=== PATIENT | female | born 1960 | race Caucasian/White ===

== ENCOUNTER 2017-03-23 10:48 | Emergency (ER) | payer BC ==
[~2017-03-23] VITALS: Ht 154.9 cm; Wt 54.5 kg
[2017-03-23] MEDS ORDERED: normal saline 1000ML IV soln IVB ONE (11:10)
[2017-03-23 11:17] LABS: BASOPHILS % (AUTO) 0.4 % (0-1); EOSINOPHILS # (AUTO) 0.3 X10'3 (0-0.9); EOSINOPHILS % (AUTO) 4.2 % (0-6); HEMATOCRIT 40.1 % (35.0-45.0); HEMOGLOBIN 14.3 g/dl (12.0-16.0); LYMPHOCYTES # (AUTO) 3.1 X10'3 (1.1-4.8); LYMPHOCYTES % (AUTO) 52.3 % (21-51); MEAN CORPUSCULAR HEMOGLOBIN 38.2 PG (27.0-31.0); MEAN CORPUSCULAR HGB CONC 35.6 % (33.0-36.5); MEAN CORPUSCULAR VOLUME 107.4 FL (78-98); MEAN PLATELET VOLUME 7.2 FL (7.4-10.4); MONOCYTES # (AUTO) 0.4 X10'3 (0-0.9); MONOCYTES % (AUTO) 5.9 % (2-12); NEUTROPHILS # (AUTO) 2.2 X10'3 (1.8-7.7); NEUTROPHILS % (AUTO) 37.2 % (42-75); PLATELET COUNT 193 X10'3 (140-440); RED BLOOD COUNT 3.74 X10'6 (4.20-5.60); RED CELL DISTRIBUTION WIDTH 13.1 % (11.5-14.5)
[2017-03-23 11:27] LABS: INR 0.9 INR; PARTIAL THROMBOPLASTIN TIME 25 SECONDS (22-32); PROTHROMBIN TIME 9.6 SECONDS (9.0-12.0)
[2017-03-23 11:34] LABS: ALANINE AMINOTRANSFERASE 54 U/L (12-78); ALBUMIN 3.7 G/DL (3.4-5.0); ALBUMIN/GLOBULIN RATIO 1.1 (1.1-1.5); ALKALINE PHOSPHATASE 54 IU/L (46-116); ANION GAP 12 (8-16); ASPARTATE AMINO TRANSFERASE 81 U/L (10-37); BILIRUBIN,TOTAL 0.2 MG/DL (0.1-1.0); BLOOD UREA NITROGEN 20 MG/DL (7-18); BUN/CREATININE RATIO 23.3 (6.6-38.0); CALCIUM 8.5 MG/DL (8.5-10.1); CHLORIDE 108 MMOL/L (99-107); CREATININE 0.86 MG/DL (0.40-0.90); GLUCOSE 94 MG/DL (70-104); POTASSIUM 4.2 MMOL/L (3.5-5.1); SODIUM 144 MMOL/L (135-145); TOTAL CARBON DIOXIDE 23.7 MMOL/L (24-32); TOTAL PROTEIN 7.1 G/DL (6.4-8.2); eGFR 68 ML/MIN
[2017-03-23 11:43] LABS: ETHANOL 0.332 GM/DL (0.0-0.010)
[2017-03-23] MEDS ORDERED: famotidine/PF 10 mg/ml inj IV ONE (11:55)
[2017-03-23] MEDS ORDERED: ondansetron/PF 4mg/2ml inj IV ONE (11:55)
[2017-03-23] MEDS ORDERED: mag hydrox/Alum hydrox/simeth 30ml oral suspension PO ONE (11:55)
[2017-03-23] MEDS ORDERED: LIDOcaine Viscous 15ml cup PO ONE (11:55)
[2017-03-23] MEDS ORDERED: sucralfate 1 gm tablet PO ONE (11:55)
[2017-03-23] MEDS ORDERED: FAMO-128 PO (11:58)
[2017-03-23] MEDS ORDERED: ONDA4TAB9 PO (11:58)
[2017-03-23 12:09] LABS: LIPASE 248 U/L (73-393)
[2017-03-23 12:44] VITALS: BP 125/73
[2017-03-23 15:33] LABS: TOTAL CELLS COUNTED 100
[2017-03-23 15:34] LABS: PLATELET ESTIMATE NORMAL
[2017-03-23 15:35] LABS: SMUDGE CELLS FEW
== END 2017-03-23 12:51 | disposition home or self-care (01) ==
LOC: ER 10:48
DX: K29.20 Alcoholic gastritis without bleeding (principal); F10.129 Alcohol abuse with intoxication, unspecified; E78.00 Pure hypercholesterolemia, unspecified; I25.10 Atherosclerotic heart disease of native coronary artery without angina pectoris; I10 Essential (primary) hypertension; I25.2 Old myocardial infarction; F17.210 Nicotine dependence, cigarettes, uncomplicated
CPT/HCPCS: 36415; 71045; 80053; 80320; 82948; 83690; 84484; 85025; 85610; 85730; 93005; 96361; 96374; 96375; 99285; J2405; J3490; J7030

== ENCOUNTER 2022-11-28 19:24 | Inpatient (IN) | payer BC, MEDICAID ==
[~2022-11-28] VITALS: Ht 154.9 cm; Wt 59.1 kg
[~2022-11-28 19:24] MED LIST: FAMO-128 PO
--- NOTE | 2022-11-28 19:58 | NUR ---
pt was BIBA [facility] for mechanical ground level fall, VSS, pt is a&o x4, +ETOH (3 vodka martinis). Pt was lying on the couch sleeping when she turned over and fell onto her L hip. Pt L leg is shorter than the righ, painful c extension, +CSM. no skin issues. pt connected to tele monitor. will continue to monitor.
[2022-11-28] MEDS ORDERED: ondansetron/PF 4mg/2ml inj IV ONE (20:25)
[2022-11-28] MEDS ORDERED: morphine 4 MG/ML inj SYRINge IV ONE (20:25)
--- NOTE | 2022-11-28 20:42 | NUR ---
I have reviewed and agree with all interventions, assessments performed and documented by dawna ross
[2022-11-28] MEDS ORDERED: temazepam 15mg capsule PO PRN (21:00)
[2022-11-28 21:17] LABS: BASOPHILS % (AUTO) 0.3 % (0-1); EOSINOPHILS # (AUTO) 0.2 X10'3 (0-0.9); EOSINOPHILS % (AUTO) 4.1 % (0-6); HEMATOCRIT 37.4 % (35.0-45.0); HEMOGLOBIN 12.4 g/dl (12.0-16.0); LYMPHOCYTES # (AUTO) 2.2 X10'3 (1.1-4.8); LYMPHOCYTES % (AUTO) 36.8 % (21-51); MEAN CORPUSCULAR HEMOGLOBIN 33.6 PG (27.0-31.0); MEAN CORPUSCULAR HGB CONC 33.2 g/dL (33.0-36.5); MEAN CORPUSCULAR VOLUME 101.1 FL (78-98); MEAN PLATELET VOLUME 7.5 FL (7.4-10.4); MONOCYTES # (AUTO) 0.4 X10'3 (0-0.9); MONOCYTES % (AUTO) 7.4 % (2-12); NEUTROPHILS # (AUTO) 3.1 X10'3 (1.8-7.7); NEUTROPHILS % (AUTO) 51.4 % (42-75); PLATELET COUNT 234 X10'3 (140-440); RED CELL DISTRIBUTION WIDTH 17.2 % (11.5-14.5); WHITE BLOOD COUNT 5.9 X10'3 (4.5-11.0)
[2022-11-28 21:22] LABS: APTT 23 SECONDS (22-32); PROTHROMBIN TIME 9.8 SECONDS (9.0-12.0)
[2022-11-28 21:25] LABS: ALANINE AMINOTRANSFERASE 18 U/L (12-78); ALBUMIN 3.1 G/DL (3.4-5.0); ALBUMIN/GLOBULIN RATIO 0.9 (1.1-1.5); ALKALINE PHOSPHATASE 46 IU/L (46-116); ANION GAP 14 (8-16); ASPARTATE AMINO TRANSFERASE 15 U/L (10-37); BLOOD UREA NITROGEN 27 MG/DL (7-18); BUN/CREATININE RATIO 28.4 (10.0-20.0); CALCIUM 8.9 MG/DL (8.5-10.1); CHLORIDE 111 MMOL/L (99-107); CREATININE 0.95 MG/DL (0.40-0.90); GLUCOSE 96 MG/DL (70-104); POTASSIUM 4.1 MMOL/L (3.5-5.1); SODIUM 145 MMOL/L (135-145); TOTAL CARBON DIOXIDE 19.9 MMOL/L (24-32); TOTAL PROTEIN 6.7 G/DL (6.4-8.2); eCRCL 45 ML/MIN; eGFR 59 ML/MIN
[2022-11-28 21:32] LABS: INR 0.9 INR
[2022-11-28 21:45] LABS: BILIRUBIN,TOTAL 0.1 MG/DL (0.1-1.0)
[2022-11-28 22:00] LABS: BILIRUBIN,URINE NEGATIVE (Neg); CLARITY,URINE SLIGHTLY CLOUDY (Clear); COLOR,URINE STRAW (Yellow); GLUCOSE, URINE NEGATIVE (Neg); KETONES,URINE NEGATIVE (Neg); LEUKOCYTE ESTERASE ,URINE NEGATIVE (Neg); NITRITES, URINE NEGATIVE (Neg); OCCULT BLOOD,URINE NEGATIVE (Neg); PH,URINE 5.5 (4.8-8.0); PROTEIN,URINE NEGATIVE (Neg); UROBILINOGEN,URINE 0.2 E.U/dL (0.2-1.0)
[2022-11-28 22:05] LABS: UA COLLECTION TYPE FOLEY CATH
[2022-11-28 22:07] LABS: HYALINE CASTS 0-3 /LPF (NEGATIVE); SQUAMOUS EPITHELIAL CELL,UR MODERATE /LPF (FEW)
[2022-11-28 22:08] LABS: BACTERIA,URINE FEW /HPF (Neg); MUCUS STRANDS FEW /LPF (Neg); RBC,URINE NONE SEEN /HPF (0-2); WBC,URINE NONE SEEN /HPF (0-4)
[2022-11-28] MEDS ORDERED: acetaminophen 650mg rectal suppository RC PRN (23:05)
[2022-11-28] MEDS ORDERED: bisacodyl 10mg suppository rectal RC PRN (23:05)
[2022-11-28] MEDS ORDERED: acetaminophen 325mg tablet PO PRN ×2 (23:05)
[2022-11-28] MEDS ORDERED: diphenhydrAMINE 25mg capsule PO PRN (23:05)
[2022-11-28] MEDS ORDERED: HYDROcodone/acetaminophen 5mg/325mg tablet PO PRN (23:05)
[2022-11-28] MEDS ORDERED: mag hydrox/Alum hydrox/simeth 30ml oral suspension PO PRN (23:05)
[2022-11-28] MEDS ORDERED: morphine 2 MG/ML inj. syringe IV PRN (23:05)
[2022-11-28] MEDS ORDERED: ondansetron 4mg rapidly disintigrating tab PO PRN (23:05)
[2022-11-28] MEDS ORDERED: ondansetron/PF 4mg/2ml inj IV PRN (23:05)
[2022-11-28] MEDS ORDERED: magnesium hydroxide 30ml (MOM) UD suspension PO PRN (23:05)
[2022-11-28] MEDS ORDERED: diphenhydrAMINE 50 mg/ml inj IV PRN (23:05)
[2022-11-28 23:39] LABS: HEMOGLOBIN A1C 5.5 % (4.5-6.2)
[2022-11-28 23:47] LABS: CREATINE KINASE 34 U/L (26-192); MAGNESIUM 1.8 MG/DL (1.5-2.4); PHOSPHORUS 4.1 MG/DL (2.3-4.5); PRO BRAIN NATRIURETIC PEPTIDE 67 PG/ML (0-125); THYROID STIMULATING HORMONE 0.87 ulU/ml (0.34-4.50)
[2022-11-28 23:48] LABS: LIPASE 77 U/L (16-77)
[2022-11-28] MEDS: normal saline 1000ml 1,000 ML IV SCH (23:55)
--- NOTE | 2022-11-28 23:56 | NUR ---
husbands cell phone [phone]
[2022-11-29] VITALS (7 sets, daily range): BP systolic 147–165; BP diastolic 67–95; PULSE 87–95; RESP 16–18; TEMP 96.5–98.1; O2SAT 94–98
[2022-11-29] MEDS: HYDROmorphone inj. 0.5 MG/0.5 ML DISP.SYRIN IV PRN (02:18)
[2022-11-29 03:21] LABS: BASOPHILS % (AUTO) 0.3 % (0-1); EOSINOPHILS # (AUTO) 0.2 X10'3 (0-0.9); EOSINOPHILS % (AUTO) 2.8 % (0-6); HEMATOCRIT 34.8 % (35.0-45.0); HEMOGLOBIN 11.5 g/dl (12.0-16.0); LYMPHOCYTES # (AUTO) 2.1 X10'3 (1.1-4.8); MEAN CORPUSCULAR HEMOGLOBIN 33.9 PG (27.0-31.0); MEAN CORPUSCULAR HGB CONC 33.1 g/dL (33.0-36.5); MEAN CORPUSCULAR VOLUME 102.2 FL (78-98); MEAN PLATELET VOLUME 7.7 FL (7.4-10.4); MONOCYTES # (AUTO) 0.7 X10'3 (0-0.9); MONOCYTES % (AUTO) 8.6 % (2-12); NEUTROPHILS # (AUTO) 5.1 X10'3 (1.8-7.7); NEUTROPHILS % (AUTO) 62.3 % (42-75); PLATELET COUNT 206 X10'3 (140-440); RED CELL DISTRIBUTION WIDTH 17.2 % (11.5-14.5); WHITE BLOOD COUNT 8.2 X10'3 (4.5-11.0)
[2022-11-29 03:32] LABS: ALANINE AMINOTRANSFERASE 17 U/L (12-78); ALBUMIN 2.9 G/DL (3.4-5.0); ALBUMIN/GLOBULIN RATIO 0.9 (1.1-1.5); ALKALINE PHOSPHATASE 44 IU/L (46-116); ANION GAP 12 (8-16); ASPARTATE AMINO TRANSFERASE 18 U/L (10-37); BLOOD UREA NITROGEN 26 MG/DL (7-18); BUN/CREATININE RATIO 31.3 (10.0-20.0); CALCIUM 8.6 MG/DL (8.5-10.1); CHLORIDE 113 MMOL/L (99-107); CHOL/HDL RATIO 3.1 (0.00-4.99); CHOLESTEROL 225 MG/DL (0-200); CREATININE 0.83 MG/DL (0.40-0.90); GLUCOSE 92 MG/DL (70-104); HDL CHOLESTEROL 73 MG/DL (35-60); LDL CHOLESTEROL 112 MG/DL (50-100); POTASSIUM 4.1 MMOL/L (3.5-5.1); SODIUM 144 MMOL/L (135-145); TOTAL CARBON DIOXIDE 18.6 MMOL/L (24-32); TOTAL PROTEIN 6.3 G/DL (6.4-8.2); TRIGLYCERIDES 127 MG/DL (20-135); eCRCL 52 ML/MIN; eGFR 69 ML/MIN
[2022-11-29 03:36] LABS: BILIRUBIN,TOTAL 0.1 MG/DL (0.1-1.0)
[2022-11-29] MEDS: HYDROcodone/acetaminophen 10/325mg tab PO PRN ×4 (07:10→19:57)
[2022-11-29] MEDS: normal saline 1000ml 1,000 ML IV SCH ×2 (09:05→20:22)
[2022-11-29] MEDS: docusate sod 100mg capsule PO SCH ×2 (09:54→20:27)
[2022-11-29] MEDS ORDERED: LISI40TA13 PO (10:54)
[2022-11-29] MEDS ORDERED: METO100T14 PO (10:54)
--- NOTE | 2022-11-29 11:00 | NUR ---
PAGER ID: [phone] MESSAGE: Yemi Yusuf Re: [id number] Pt home med rec complete. Patient c/o left calf pain, calf feels warm. [id number]
--- NOTE | 2022-11-29 15:51 | NUR ---
PAGER ID: [phone] MESSAGE: Yemi Yusuf Re [id number] We talked about venous ultrasound, left calf and starting BP meds from patient home med list? Can we renew francis B order set, expiring this evening? Thanks [phone]
[2022-11-29] MEDS: morphine 2 MG/ML inj. syringe IV PRN ×2 (17:08→22:38)
--- NOTE | 2022-11-29 17:42 | NUR ---
Student documentation: I have reviewed all interventions, assessments performed and documented by Clemente NGUYEN. Student Medication Administration: For this medication-pass time frame, all medication were reviewed, dispensed, administered and documented per hospital policy by Clemente NGUYEN.
--- NOTE | 2022-11-29 18:34 | NUR ---
Problems reprioritized. Patient report given, questions answered & plan of care reviewed with Zulema MICHEL.
[2022-11-30] MEDS: HYDROcodone/acetaminophen 10/325mg tab PO PRN ×6 (01:13→23:59)
[2022-11-30] MEDS: normal saline 1000ml 1,000 ML IV SCH ×2 (05:49→15:35)
[2022-11-30 05:56] LABS: BASOPHILS % (AUTO) 0.4 % (0-1); EOSINOPHILS # (AUTO) 0.1 X10'3 (0-0.9); EOSINOPHILS % (AUTO) 2.6 % (0-6); HEMATOCRIT 32.1 % (35.0-45.0); HEMOGLOBIN 10.7 g/dl (12.0-16.0); LYMPHOCYTES # (AUTO) 1.6 X10'3 (1.1-4.8); LYMPHOCYTES % (AUTO) 30.9 % (21-51); MEAN CORPUSCULAR HEMOGLOBIN 34.2 PG (27.0-31.0); MEAN CORPUSCULAR HGB CONC 33.3 g/dL (33.0-36.5); MEAN CORPUSCULAR VOLUME 102.9 FL (78-98); MEAN PLATELET VOLUME 7.6 FL (7.4-10.4); MONOCYTES # (AUTO) 0.6 X10'3 (0-0.9); NEUTROPHILS # (AUTO) 2.9 X10'3 (1.8-7.7); NEUTROPHILS % (AUTO) 55.1 % (42-75); PLATELET COUNT 159 X10'3 (140-440); RED BLOOD COUNT 3.12 X10'6 (4.20-5.60); RED CELL DISTRIBUTION WIDTH 16.7 % (11.5-14.5); WHITE BLOOD COUNT 5.3 X10'3 (4.5-11.0)
[2022-11-30 06:15] LABS: ALANINE AMINOTRANSFERASE 14 U/L (12-78); ALBUMIN 2.6 G/DL (3.4-5.0); ALBUMIN/GLOBULIN RATIO 0.8 (1.1-1.5); ALKALINE PHOSPHATASE 43 IU/L (46-116); ANION GAP 11 (8-16); ASPARTATE AMINO TRANSFERASE 16 U/L (10-37); BILIRUBIN,TOTAL 0.3 MG/DL (0.1-1.0); BLOOD UREA NITROGEN 16 MG/DL (7-18); BUN/CREATININE RATIO 21.9 (10.0-20.0); CALCIUM 8.2 MG/DL (8.5-10.1); CHLORIDE 106 MMOL/L (99-107); CREATININE 0.73 MG/DL (0.40-0.90); GLUCOSE 90 MG/DL (70-104); POTASSIUM 3.6 MMOL/L (3.5-5.1); SODIUM 137 MMOL/L (135-145); TOTAL CARBON DIOXIDE 19.8 MMOL/L (24-32); TOTAL PROTEIN 5.8 G/DL (6.4-8.2); eCRCL 59 ML/MIN; eGFR 80 ML/MIN
--- NOTE | 2022-11-30 07:00 | NUR ---
Patient in room ORTHO 4024. I have received report from Zulema MICHEL and had the opportunity to ask questions and assume patient care.
[2022-11-30 07:14] VITALS: BP 174/80; PULSE 86; RESP 16; TEMP 96.7; O2SAT 98
--- NOTE | 2022-11-30 07:18 | NUR ---
Patient in room ORTHO 4024. I have received report from Zulema MICHEL and had the opportunity to ask questions and assume patient care.
[2022-11-30 08:00] VITALS: RESP 18
[2022-11-30] MEDS: metoprolol tartrate 50mg tablet PO SCH (08:50)
[2022-11-30] MEDS: docusate sod 100mg capsule PO SCH ×2 (08:50→19:55)
[2022-11-30] MEDS: atorvastatin 10mg tablet PO SCH (08:51)
[2022-11-30] MEDS: lisinopril 20mg tablet PO SCH (08:51)
[2022-11-30] MEDS: morphine 2 MG/ML inj. syringe IV PRN (08:52)
[2022-11-30 10:00] VITALS: BP 139/73; PULSE 69; RESP 16; TEMP 98; O2SAT 98
[2022-11-30 16:40] VITALS: RESP 15; O2SAT 96
[2022-11-30 18:00] VITALS: BP 121/67; PULSE 75; RESP 16; TEMP 98.8; O2SAT 99
--- NOTE | 2022-11-30 18:40 | NUR ---
Problems reprioritized. Patient report given, questions answered & plan of care reviewed with Celestina MICHEL.
[2022-12-01] MEDS: normal saline 1000ml 1,000 ML IV SCH ×3 (01:33→21:05)
[2022-12-01] MEDS: HYDROcodone/acetaminophen 10/325mg tab PO PRN ×4 (05:21→20:46)
[2022-12-01 06:00] VITALS: BP 143/81; PULSE 74; RESP 16; TEMP 98.3; O2SAT 97
[2022-12-01 06:40] LABS: BASOPHILS % (AUTO) 0.6 % (0-1); EOSINOPHILS # (AUTO) 0.4 X10'3 (0-0.9); EOSINOPHILS % (AUTO) 7.3 % (0-6); HEMATOCRIT 33.4 % (35.0-45.0); HEMOGLOBIN 11.1 g/dl (12.0-16.0); LYMPHOCYTES # (AUTO) 2.3 X10'3 (1.1-4.8); LYMPHOCYTES % (AUTO) 45.4 % (21-51); MEAN CORPUSCULAR HGB CONC 33.3 g/dL (33.0-36.5); MEAN CORPUSCULAR VOLUME 102.2 FL (78-98); MEAN PLATELET VOLUME 8.5 FL (7.4-10.4); MONOCYTES # (AUTO) 0.6 X10'3 (0-0.9); MONOCYTES % (AUTO) 11.2 % (2-12); NEUTROPHILS # (AUTO) 1.8 X10'3 (1.8-7.7); NEUTROPHILS % (AUTO) 35.5 % (42-75); PLATELET COUNT 164 X10'3 (140-440); RED BLOOD COUNT 3.27 X10'6 (4.20-5.60); RED CELL DISTRIBUTION WIDTH 16.5 % (11.5-14.5)
[2022-12-01 06:53] LABS: ALANINE AMINOTRANSFERASE 16 U/L (12-78); ALBUMIN 2.7 G/DL (3.4-5.0); ALBUMIN/GLOBULIN RATIO 0.9 (1.1-1.5); ALKALINE PHOSPHATASE 44 IU/L (46-116); ANION GAP 9 (8-16); ASPARTATE AMINO TRANSFERASE 24 U/L (10-37); BILIRUBIN,TOTAL 0.4 MG/DL (0.1-1.0); BLOOD UREA NITROGEN 8 MG/DL (7-18); BUN/CREATININE RATIO 12.1 (10.0-20.0); CALCIUM 8.7 MG/DL (8.5-10.1); CHLORIDE 109 MMOL/L (99-107); CREATININE 0.66 MG/DL (0.40-0.90); GLUCOSE 84 MG/DL (70-104); POTASSIUM 3.6 MMOL/L (3.5-5.1); SODIUM 139 MMOL/L (135-145); TOTAL CARBON DIOXIDE 21.5 MMOL/L (24-32); TOTAL PROTEIN 5.7 G/DL (6.4-8.2); eCRCL 65 ML/MIN; eGFR 90 ML/MIN
--- NOTE | 2022-12-01 06:59 | NUR ---
Patient in room ORTHO 4024. I have received report from Celestina MICHEL and had the opportunity to ask questions and assume patient care.
--- NOTE | 2022-12-01 07:07 | NUR ---
Patient medicated q4hrly with [place], for left hip pain. Good results. Resting most of shift. Report given to Yemi MICHEL
--- NOTE | 2022-12-01 07:16 | NUR ---
Patient in room ORTHO 4024. I have received report from Celestina MICHEL and had the opportunity to ask questions and assume patient care.
[2022-12-01 08:00] VITALS: RESP 16; O2SAT 97
[2022-12-01] MEDS: lisinopril 20mg tablet PO SCH ×2 (08:32→08:56)
[2022-12-01] MEDS: atorvastatin 10mg tablet PO SCH ×2 (08:37→08:55)
[2022-12-01] MEDS: docusate sod 100mg capsule PO SCH ×2 (08:47→20:48)
[2022-12-01 08:50] VITALS: PULSE 76; TEMP 98.8
[2022-12-01] MEDS: metoprolol tartrate 50mg tablet PO SCH (08:55)
[2022-12-01] MEDS: HYDROmorphone inj. 0.5 MG/0.5 ML DISP.SYRIN IV PRN ×2 (09:01→13:16)
[2022-12-01 10:00] VITALS: BP 140/80; PULSE 60; RESP 16; TEMP 97.8; O2SAT 97
[2022-12-01 18:00] VITALS: BP 146/69; PULSE 69; RESP 16; TEMP 98.5; O2SAT 97
--- NOTE | 2022-12-01 18:31 | NUR ---
Problems reprioritized. Patient report given, questions answered & plan of care reviewed with Ar STEVENS.
[2022-12-01 22:00] VITALS: BP 149/104; PULSE 70; RESP 14; TEMP 98; O2SAT 97
[2022-12-02] MEDS: HYDROcodone/acetaminophen 10/325mg tab PO PRN ×4 (01:40→15:54)
[2022-12-02 06:00] VITALS: BP 147/81; PULSE 73; RESP 12; TEMP 97.9; O2SAT 98
--- NOTE | 2022-12-02 06:15 | NUR ---
Patient in room ORTHO 4024. I have received report from Ar STEVENS and had the opportunity to ask questions and assume patient care.
--- NOTE | 2022-12-02 06:21 | NUR ---
Report to Mary Jane STEVENS
[2022-12-02 06:50] LABS: BASOPHILS % (AUTO) 0.5 % (0-1); EOSINOPHILS # (AUTO) 0.4 X10'3 (0-0.9); EOSINOPHILS % (AUTO) 9.1 % (0-6); HEMATOCRIT 31.2 % (35.0-45.0); HEMOGLOBIN 10.7 g/dl (12.0-16.0); LYMPHOCYTES # (AUTO) 1.7 X10'3 (1.1-4.8); LYMPHOCYTES % (AUTO) 33.8 % (21-51); MEAN CORPUSCULAR HEMOGLOBIN 34.9 PG (27.0-31.0); MEAN CORPUSCULAR HGB CONC 34.4 g/dL (33.0-36.5); MEAN CORPUSCULAR VOLUME 101.5 FL (78-98); MEAN PLATELET VOLUME 8.4 FL (7.4-10.4); MONOCYTES # (AUTO) 0.6 X10'3 (0-0.9); MONOCYTES % (AUTO) 11.8 % (2-12); NEUTROPHILS # (AUTO) 2.2 X10'3 (1.8-7.7); NEUTROPHILS % (AUTO) 44.8 % (42-75); PLATELET COUNT 158 X10'3 (140-440); RED BLOOD COUNT 3.07 X10'6 (4.20-5.60); RED CELL DISTRIBUTION WIDTH 16.5 % (11.5-14.5); WHITE BLOOD COUNT 4.9 X10'3 (4.5-11.0)
[2022-12-02 07:17] LABS: ALANINE AMINOTRANSFERASE 17 U/L (12-78); ALBUMIN 2.6 G/DL (3.4-5.0); ALBUMIN/GLOBULIN RATIO 0.8 (1.1-1.5); ALKALINE PHOSPHATASE 43 IU/L (46-116); ANION GAP 10 (8-16); ASPARTATE AMINO TRANSFERASE 18 U/L (10-37); BILIRUBIN,TOTAL 0.3 MG/DL (0.1-1.0); BLOOD UREA NITROGEN 9 MG/DL (7-18); BUN/CREATININE RATIO 12.3 (10.0-20.0); CALCIUM 8.9 MG/DL (8.5-10.1); CHLORIDE 108 MMOL/L (99-107); CREATININE 0.73 MG/DL (0.40-0.90); GLUCOSE 86 MG/DL (70-104); POTASSIUM 3.3 MMOL/L (3.5-5.1); SODIUM 139 MMOL/L (135-145); TOTAL CARBON DIOXIDE 20.6 MMOL/L (24-32); TOTAL PROTEIN 5.7 G/DL (6.4-8.2); eCRCL 59 ML/MIN; eGFR 80 ML/MIN
[2022-12-02] MEDS ORDERED: lisinopril 20mg tablet PO ONE (07:45)
[2022-12-02] MEDS: docusate sod 100mg capsule PO SCH (07:47)
[2022-12-02] MEDS: metoprolol tartrate 50mg tablet PO SCH (07:48)
[2022-12-02] MEDS ORDERED: atorvastatin 10mg tablet PO ONE (07:50)
[2022-12-02 08:00] VITALS: RESP 16; O2SAT 99
[2022-12-02 10:00] VITALS: BP 129/69; PULSE 67; RESP 16; TEMP 97.8; O2SAT 98
[2022-12-02] MEDS ORDERED: potassium chloride 10mEq ER tablet PO ONE (10:20)
[2022-12-02] MEDS ORDERED: potassium Cl 20 mEq SR tablet PO ONE (10:35)
[2022-12-02] MEDS ORDERED: ATOR10TA70 PO (11:41)
[2022-12-02] MEDS ORDERED: LISI40TA13 PO (11:41)
[2022-12-02] MEDS ORDERED: HYDR-3972 PO (11:41)
[2022-12-02] MEDS ORDERED: METO50TA16 PO (11:41)
--- NOTE | 2022-12-02 14:25 | NUR ---
Spoke with case management [place] several times today regarding patient WC delivery. Case management advised me to call the supervisor loading [employer]. I spoke with supervisor loading Cammy and she advised me that the WC has an unknown ETA. I asked what company will be delivering it. She stated [employer]. I called [facility] and spoke with Meek. I asked him if there was a ETA on the delivery. Meek asked if patient is being discharged and I advised him that patient was discharged at noon. Meek apologized and stated that it will be here at 3:00. I advised patient and she is calling her ride.
--- NOTE | 2022-12-02 15:30 | NUR ---
I have reviewed and agree with interventions, assessments, and documentation by Mary Jane Stringer LVN.
--- NOTE | 2022-12-02 15:49 | NUR ---
verbally spoke with and asked if patient is discharging with francis. Per Dr. Jara no patient is not discharging with it. pls remove.
[2022-12-02 15:54] VITALS: RESP 14
--- NOTE | 2022-12-02 16:30 | NUR ---
Patient discharged home today with . All discharge instructions were explained and all questions were answered. IV and francis removed. Patient states that she did have a BM and was able to void. Patient A&O for discharge. Patient was wheeled downstairs and helped into private vehicle.
--- NOTE | 2022-12-02 17:27 | NUR ---
prior to pt being dc w/ consent from primary nurse, I removed pt Narvaez catheter w/ clinical instructor. no complaints from pt after Narvaez removal
== END 2022-12-02 16:25 | disposition home or self-care (01) | DRG 340 ==
LOC: ER 19:25 → ED HOLD 23:06 → EDBEDREQ 11-29 07:12 → ORTHO 4S 11-29 08:00
PROVIDERS: ADMIT Family Medicine; ATTEND Family Medicine
DX: S72.092A Other fracture of head and neck of left femur, initial encounter for closed fracture (principal); N17.9 Acute kidney failure, unspecified; E87.20 Acidosis, unspecified; E78.00 Pure hypercholesterolemia, unspecified; E86.1 Hypovolemia; I12.9 Hypertensive chronic kidney disease with stage 1 through stage 4 chronic kidney disease, or unspecified chronic kidney disease; I25.10 Atherosclerotic heart disease of native coronary artery without angina pectoris; J44.9 Chronic obstructive pulmonary disease, unspecified; K21.9 Gastro-esophageal reflux disease without esophagitis; K29.70 Gastritis, unspecified, without bleeding; M87.9 Osteonecrosis, unspecified; N18.9 Chronic kidney disease, unspecified; W06.XXXA Fall from bed, initial encounter; D64.9 Anemia, unspecified; Y93.89 Activity, other specified; Y92.89 Other specified places as the place of occurrence of the external cause; Y99.8 Other external cause status; I25.2 Old myocardial infarction
CPT/HCPCS: 36415; 71045; 72192; 73502; 80053; 80061; 81001; 82550; 83036; 83690; 83735; 83880; 84100; 84443; 85025; 85610; 85730; 86885; 86900; 86901; 87081; 93971; 97161; 97530; 97542; 99285; A4314; A4333; A6209; G0378; J1170; J2270; J2405; J7030

== ENCOUNTER 2023-10-02 01:22 | Emergency (ER) | payer MEDICARE, MEDICAID ==
[~2023-10-02] VITALS: Ht 162.6 cm; Wt 55.0 kg
[~2023-10-02 01:22] MED LIST changes: +ATOR10TA70 PO; +HYDR-3972 PO; +METO50TA16 PO
[2023-10-02] MEDS ORDERED: methylPREDNISolone sod succ/PF 40mg inj. IV ONE (01:35)
[2023-10-02 01:46] LABS: EOSINOPHILS # (AUTO) 0.3 X10'3 (0-0.9); HEMOGLOBIN 13.5 g/dl (12.0-16.0); MONOCYTES # (AUTO) 0.9 X10'3 (0-0.9); NEUTROPHILS # (AUTO) 2.4 X10'3 (1.8-7.7); RED BLOOD COUNT 3.94 X10'6 (4.20-5.60)
[2023-10-02 01:48] LABS: BASOPHILS % (AUTO) 0.2 % (0-1); EOSINOPHILS % (AUTO) 3.5 % (0-6); HEMATOCRIT 40.2 % (35.0-45.0); LYMPHOCYTES # (AUTO) 4.6 X10'3 (1.1-4.8); LYMPHOCYTES % (AUTO) 55.8 % (21-51); MEAN CORPUSCULAR HEMOGLOBIN 34.2 PG (27.0-31.0); MEAN CORPUSCULAR HGB CONC 33.5 g/dL (33.0-36.5); MEAN CORPUSCULAR VOLUME 102.1 FL (78-98); MEAN PLATELET VOLUME 7.5 FL (7.4-10.4); MONOCYTES % (AUTO) 10.7 % (2-12); NEUTROPHILS % (AUTO) 29.8 % (42-75); PLATELET COUNT 206 X10'3 (140-440); RED CELL DISTRIBUTION WIDTH 14.6 % (11.5-14.5); WHITE BLOOD COUNT 8.2 X10'3 (4.5-11.0)
[2023-10-02] MEDS: albuterol 2.5 MG/3 ML nebule CONTNEB ONE (01:58)
[2023-10-02] MEDS: ipratropium 0.5 MG/2.5ML nebule IH ONE (01:58)
[2023-10-02] MEDS: magnesium sulf-water 2g/50mL 50 ML IV ONE ×2 (02:00→03:19)
[2023-10-02 02:02] VITALS: PULSE 126; RESP 24; O2SAT 99
[2023-10-02 02:02] LABS: ALANINE AMINOTRANSFERASE 17 U/L (12-78); ALBUMIN 3.5 G/DL (3.4-5.0); ALBUMIN/GLOBULIN RATIO 0.9 (1.1-1.5); ALKALINE PHOSPHATASE 80 IU/L (46-116); ANION GAP 18 (8-16); ASPARTATE AMINO TRANSFERASE 16 U/L (10-37); BILIRUBIN,TOTAL 0.1 MG/DL (0.1-1.0); BLOOD UREA NITROGEN 15 MG/DL (7-18); BUN/CREATININE RATIO 18.3 (10.0-20.0); CHLORIDE 104 MMOL/L (99-107); CREATININE 0.82 MG/DL (0.40-0.90); GLUCOSE 114 MG/DL (70-104); PRO BRAIN NATRIURETIC PEPTIDE 298 PG/ML (0-125); SODIUM 140 MMOL/L (135-145); TOTAL PROTEIN 7.6 G/DL (6.4-8.2); eCRCL 59 ML/MIN; eGFR 70 ML/MIN
[2023-10-02] MEDS ORDERED: iohexol 350MG/ML 100ml bottle IV ONE (02:06)
[2023-10-02 02:10] LABS: POTASSIUM 2.9 MMOL/L (3.5-5.1)
[2023-10-02 03:02] VITALS: PULSE 123; RESP 20; O2SAT 100
[2023-10-02] MEDS: methylPREDNISolone sod succ 125mg/2ml vial IV ONE (03:19)
[2023-10-02] MEDS ORDERED: Potassium Cl inj 40 MEQ in normal saline 250ml IV soln 250 ML IV ONE (03:25)
[2023-10-02] MEDS: LORazepam 2 mg/ml vial IV ONE ×2 (03:39→04:07)
[2023-10-02] MEDS: Potassium Cl 40 MEQ in sodium chloride 0.45% 500 ML IV ONE (03:55)
[2023-10-02 04:10] LABS: TOTAL CELLS COUNTED 100
[2023-10-02 04:11] LABS: PLATELET ESTIMATE NORMAL
[2023-10-02 04:38] LABS: ETHANOL 293 MG/DL (<10)
[2023-10-02] MEDS: phenoBARBITAL sod 130mg/ml inj. IV ONE (04:47)
[2023-10-02] MEDS: normal saline 1000ml 1,000 ML IV ONE ×2 (05:34)
[2023-10-02] MEDS ORDERED: normal saline 1000ML IV soln IV ONE (12:20)
[2023-10-02] MEDS: normal saline 1000ML IV soln IVB ONE (13:05)
[2023-10-02 13:25] LABS: BILIRUBIN,URINE NEGATIVE (Neg); CLARITY,URINE CLEAR (Clear); COLOR,URINE STRAW (Yellow); GLUCOSE, URINE NEGATIVE (Neg); KETONES,URINE NEGATIVE (Neg); LEUKOCYTE ESTERASE ,URINE NEGATIVE (Neg); NITRITES, URINE NEGATIVE (Neg); OCCULT BLOOD,URINE NEGATIVE (Neg); PROTEIN,URINE NEGATIVE (Neg); UROBILINOGEN,URINE 0.2 E.U/dL (0.2-1.0)
[2023-10-02 13:27] LABS: UA COLLECTION TYPE CLN CATCH MIDSTREAM
[2023-10-02 14:38] LABS: ALBUMIN 3.2 G/DL (3.4-5.0); ANION GAP 15 (8-16); BLOOD UREA NITROGEN 10 MG/DL (7-18); BUN/CREATININE RATIO 12.2 (10.0-20.0); CALCIUM 8.2 MG/DL (8.5-10.1); CHLORIDE 105 MMOL/L (99-107); CREATININE 0.82 MG/DL (0.40-0.90); GLUCOSE 212 MG/DL (70-104); MAGNESIUM 1.3 MG/DL (1.5-2.4); POTASSIUM 3.5 MMOL/L (3.5-5.1); SODIUM 141 MMOL/L (135-145); TOTAL CARBON DIOXIDE 20.6 MMOL/L (24-32); eCRCL 59 ML/MIN; eGFR 70 ML/MIN
[2023-10-02 17:34] VITALS: PULSE 100
[2023-10-02] MEDS ORDERED: LISI20TA28 PO (18:44)
[2023-10-02] MEDS ORDERED: METO-395 PO (18:44)
[2023-10-02] MEDS ORDERED: ALB0.5UD NEB (18:44)
[2023-10-02 19:05] VITALS: BP 132/87; RESP 16; TEMP 98.9; O2SAT 99
== END 2023-10-02 19:11 | disposition home or self-care (01) ==
LOC: ER 01:22
DX: F10.239 Alcohol dependence with withdrawal, unspecified (principal); Z20.822 Contact with and (suspected) exposure to COVID-19; I25.10 Atherosclerotic heart disease of native coronary artery without angina pectoris; Z90.49 Acquired absence of other specified parts of digestive tract; I10 Essential (primary) hypertension; Z79.899 Other long term (current) drug therapy; Y90.9 Presence of alcohol in blood, level not specified
CPT/HCPCS: 36415; 71045; 71275; 74177; 80048; 80053; 81003; 83605; 83735; 83880; 84145; 84484; 85007; 85025; 87040; 87811; 93005; 94640; 94644; 96361; 96365; 96366; 96368; 96375; 99285; A7015; G0480; J2060; J2560; J2919; J3480; J3490; J7030; Q9967; Z7610; 80320; 94760